=== PATIENT | female | born 1965 | race Caucasian/White ===

== ENCOUNTER 2016-08-10 22:29 | Emergency (ER) | payer BC ==
[2016-08-11] MEDS ORDERED: Acetaminophen TAB* 325 MG PO ONE (01:15)
--- NOTE | 2016-08-11 01:43 | ED ---
Lower Extremity - HPI Summary HPI Summary: 50F presents with fall in shower and right foot pain today. She denies any LOC but is unsure if hit head but has been drinking. Is also on blood thinners. She states she broke her foot previously at 5th metatarsal. She has been able to ambulate with pain. She has not taken anything for her pain. She denies any nausea or vomiting. She denies any numbness or tingling. - History of Current Complaint Chief Complaint: EDGeneral Stated Complaint: FALL Time Seen by Provider: 08/11/16 00:02 Pain Intensity: 5 - Allergies/Home Medications Allergies/Adverse Reactions: Allergies Allergy/AdvReac Type Severity Reaction Status Date / Time No Known Allergies Allergy Verified 08/10/16 22:39 PMH/Surg Hx/FS Hx/Imm Hx Endocrine/Hematology History: Reports: Hx Anticoagulant Therapy Respiratory History: Reports: Other Respiratory Problems/Disorders - collapsed lung Infectious Disease History: No Infectious Disease History: Denies: Traveled Outside the [place] in Last 30 Days - Family History Known Family History: Positive: Cardiac Disease - Social History Alcohol Use: Occasionally Alcohol Amount: DRANK "ALOT TODAY" Substance Use Type: Reports: None Smoking Status (MU): Never Smoked Tobacco Review of Systems Negative: Fever Negative: Chest Pain Negative: Shortness Of Breath Positive: Other - right foot and ankle pain Negative: Headache All Other Systems Reviewed And Are Negative: Yes Physical Exam Triage Information Reviewed: Yes Vital Signs On Initial Exam: Initial Vitals Temp Pulse Resp BP Pulse Ox 97.9 F 82 16 97/63 100 08/10/16 22:30 08/10/16 22:30 08/10/16 22:30 08/10/16 22:30 08/10/16 22:30 Vital Signs Reviewed: Yes Appearance: Positive: Well-Appearing Skin: Positive: Warm, Dry Head/Face: Positive: Normal Head/Face Inspection Eyes: Positive: Normal, Conjunctiva Clear ENT: Positive: Normal ENT inspection, Pharynx normal, TMs normal Respiratory/Lung Sounds: Positive: Clear to Auscultation, Breath Sounds Present Cardiovascular: Positive: Normal, RRR Musculoskeletal: Positive: Limited @ - right ankle due to pain, Other - tender over 5th metatarsal, edema noted to right lateral malleolus with tenderness. good pulses, capillary refil < 2secs Procedures - Splinting Location: right foot Hand-Made Type: fiberglass Splint: posterior walking Pre-Proc Neuro Vasc Exam: normal Post-Proc Neuro Vasc Exam: normal Diagnostics - Vital Signs Vital Signs Temp Pulse Resp BP Pulse Ox 08/11/16 01:04 97.9 F 74 18 103/55 98 08/10/16 22:30 97.9 F 82 16 97/63 100 - Laboratory Lab Statement: Any lab studies that have been ordered have been reviewed, and results considered in the medical decision making process. - Radiology ankle Xray Interpretation: No Acute Changes - swelling over lateral malleolus Radiology Interpretation Completed By: ED Physician foot Xray Interpretation: Positive (See Comments) - fracture of tuberosity of 5th metatarsal and cuboid Radiology Interpretation Completed By: ED Physician - CT brain CT Interpretation: No Acute Changes CT Interpretation Completed By: Radiologist Lower Extremity Course/Dx - Course Course Of Treatment: 50F presents with right foot and ankle pain today s/p falling in shower. had some ETOH and does not know if hit head but denies any LOC. is on blood thinners. able to ambulate. had previous fracture to right 5th metatarsal. on exam has tenderness to right 5th metarsal and edema noted to lateral mallelous. normal neuro exam. I read xray as fracture to 5th metatarsal and cuboid. did not see fracture of ankle but placed in posterior walking for 5th metatarsal fracture so will cover for ankle fracture. CT brain normal. patient has ortho dr in [place] already will follow up with patient understands and agrees with plan - Diagnoses Differential Diagnosis/HQI/PQRI: Positive: Fracture (Closed), Sprain, Strain Provider Diagnoses: Foot fracture, right Discharge - Discharge Plan Condition: Good Disposition: HOME Prescriptions: oxyCODONE/Acetamin 5/325 MG* [Percocet 5/325 TAB*] 1 tab PO Q6H PRN #20 tab MDD 4 PRN Reason: Pain Patient Education Materials: Foot Fracture in Adults (ED) Referrals: Edilberto SAMUELS,Rodney Berman [Primary Care Provider] - Additional Instructions: Use crutches and stay nonweight bearing Keep splint on area and keep dry Call ortho office to set up appointment for follow up Use tyenlol for pain every 6 hours and use narcotic for breakthrough pain Ice, elevate Return to ED if develop numbness or tingling or any new or worsening symptoms
[2016-08-11] MEDS ORDERED: oxyCODONE/Acetamin 5/325 MG* TAB PO ONE (02:20)
[2016-08-11 04:12] VITALS: BP 126/74
--- NOTE | 2016-08-11 07:54 | RAD ---
INDICATION: Fall. Positive EtOH. COMPARISON: None. TECHNIQUE: Contiguous axial sections of the brain were obtained from the skull base to the vertex without contrast. FINDINGS: The ventricles, cisterns and sulci are within normal limits. The jimenez-white matter differentiation is adequately maintained and there is no sulcal effacement. No significant focal abnormality or mass effect is present. There is no evidence for intracranial hemorrhage. No significant focal osseous abnormality is present. The visualized portion of the paranasal sinuses and mastoid air cells appear clear. IMPRESSION: Normal CT of the brain.
--- NOTE | 2016-08-11 07:58 | RAD ---
INDICATION: Foot and ankle pain after a slip and fall injury. The patient reports previous right foot fracture 01/2016. COMPARISON: None. TECHNIQUE: 3 views of the right foot and 3 views of the right ankle were obtained. FINDINGS: There is swelling overlying the fibular malleolus. On the AP view of the ankle there is tiny bony focus at the distal tip of the right fibular malleolus that could represent an avulsion injury. The ankle joint is otherwise appropriately aligned and there is no asymmetric widening of the ankle mortise. There is a fracture line at the base of the right fifth metatarsal with cortication of the bones of bordering the fracture line. Degenerative changes of the right foot include enthesophyte formation at the origin of the plantar fascia at the calcaneal tubercle. The remaining bones of the right foot are intact and appropriately aligned. IMPRESSION: 1. SOFT TISSUE SWELLING OVERLYING THE RIGHT FIBULAR MALLEOLUS WITH POTENTIAL SMALL BONY AVULSION FRACTURE AT THE DISTAL TIP OF THE RIGHT FIBULA. 2. THERE IS A CHRONIC APPEARING NONUNION FRACTURE AT THE BASE OF THE RIGHT FIFTH METATARSAL. THERE ARE NO PRIOR RIGHT FOOT IMAGES AVAILABLE FOR COMPARISON THAT WOULD OFFER MORE CERTAINTY ON THE CHRONICITY OF THIS INJURY. If the patient's symptoms persist, follow-up imaging is recommended.
== END 2016-08-11 03:19 | disposition home or self-care (01) ==
LOC: ED 22:29
DX: S92.901A Unspecified fracture of right foot, initial encounter for closed fracture (principal); M25.571 Pain in right ankle and joints of right foot; M79.671 Pain in right foot; W18.2XXA Fall in (into) shower or empty bathtub, initial encounter; Y93.9 Activity, unspecified; Y92.9 Unspecified place or not applicable; Y99.9 Unspecified external cause status
CPT/HCPCS: 70450; 99283; A9270-GY